=== PATIENT | female | born 1945 | race Caucasian/White ===

== ENCOUNTER 2017-03-21 13:34 | Emergency (ER) | payer MEDICARE, BC ==
--- NOTE | 2017-03-21 15:00 | ERNOTE ---
Dizziness ER Record Presenting Symptoms: dizziness Time Seen by Provider: 03/21/17 14:34 Source: patient, family Immunizations: IMMUNIZATION HX Immunizations Up to Date Yes History of Influenza Vaccine Yes Hx Pneumococcal Vaccination Yes Allergies/Adverse Reactions: Allergies Allergy/AdvReac Type Severity Reaction Status Date / Time No Known Allergies Allergy Unverified 03/21/17 13:59 Home Medications: HOME MEDICATIONS Allopurinol [Zyloprim (Allopurinol)] 100 mg PO DAILY 03/21/17 [Last Taken Unknown] Aspirin [Aspirin Chewable] 81 mg PO DAILY 03/21/17 [Last Taken Unknown] Azithromycin [Zithromax] 250 mg PO DAILY #6 tablet 03/21/17 [Last Taken Unknown] Clonidine HCl [Clonidine HCl ER] 0.1 mg PO DAILY 03/21/17 [Last Taken Unknown] Hydrochlorothiazide 50 mg PO DAILY 03/21/17 [Last Taken Unknown] Meclizine HCl 25 mg PO TID PRN #20 tablet 03/21/17 [Last Taken Unknown] Meloxicam [Mobic] 15 mg PO DAILY 03/21/17 [Last Taken Unknown] Metoprolol Tartrate [Lopressor] 100 mg PO BID 03/21/17 [Last Taken Unknown] Ondansetron [Zofran Odt] 4 mg PO Q6H PRN #20 tab 03/21/17 [Last Taken Unknown] Pravastatin Sodium 40 mg PO HS 03/21/17 [Last Taken Unknown] Soluble [place] Fiber [Fibercel] 500 gm PO DAILY 03/21/17 [Last Taken Unknown] - History of Present Illness Narrative: Patient noticed that she was having some hearing problems in the left ear and his history of wax so she went to the store and bought some Debrox with bulb syringe to irrigate out the ear canal. Subsequent to that she started noticing some roaring sensation in the ear and developed some dizziness. Patient denies any difficulty walking just dizziness with sudden head movements with nausea. Timing and Duration: gradual onset Noted on awakening:: No Severity: max: moderate Severity: currently: moderate Associated Symptoms: Present: ringing/roaring in ear, nausea Sense of movement: Present: spinning Decreased ability to stand/walk:: Present: walks w/o assistance Usually:: Present: walks w/o assistance Modifying Factors - (Improves): Reports: nothing Modifying Factors - (Worsens): Reports: movement of head Review of Systems - Review of Systems Constitutional: Present: See HPI EYE: Present: no symptoms reported ENT: Present: See HPI Respiratory: Present: no symptoms reported Cardiology: Present: no symptoms reported Gastrointestinal/Abdominal: Present: no symptoms reported Genitourinary: Present: no symptoms reported Musculoskeletal: Present: no symptoms reported Skin: Present: no symptoms reported Neurological: Present: no symptoms reported Endocrine: Present: no symptoms reported Hematologic/Lymphatic: Present: no symptoms reported Psych: Present: no symptoms reported - Patient's Past Medical History Patient History - Medical: No pertinent hx Patient History - Cardiac/Respiratory: Hypertension, Hyperlipidemia Patient History - Cancer: No Hx of Cancer Patient History - Surgical Procedures: No surgical history Patient History - Other: None LMP (females 10-50): Menopausal - Social History Living Situations: home Abuse History: No History of abuse Psych History: No pertinent hx Smoking Status: Never smoker Alcohol Use: occasionally Drug Use: none - Immunizations Immunizations Up to Date: Yes Hx Pneumococcal Vaccination: Yes History of Influenza Vaccine: Yes Physical Exam - Physical Exam General Appearance: Present: wd/wn, alert, mild distress Eye Exam: Normal inspection: bilateral, PERRL: bilateral Ears, Nose, Throat: Present: abnormal TM (L) - opaque in appearance, normal pharynx Neck: Present: normal inspection, nontender Respiratory: Present: no respiratory distress, normal breath sounds, no accessory muscle use, chest nontender, lungs clear Cardiovascular/Chest: Present: regular rate, rhythm, no murmur, normal peripheral pulses Gastrointestinal/Abdominal: Present: normal bowel sounds, nontender, nondistended, soft, no organomegaly Rectal Exam: Present: deferred Back Exam: Present: normal inspection, normal range of motion Extremity Exam: Present: normal inspection, non-tender, no edema, normal range of motion Neurological Exam: Present: alert, oriented, normal mood/affect, no motor/ sensory deficits, 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 Vital Signs: Vital Signs 03/21/17 03/21/17 13:54 14:17 Temperature 36.5 C Pulse Rate 53 L 54 L Respiratory 18 12 Rate Blood Pressure 199/83 153/56 O2 Sat by Pulse 98 98 Oximetry - Progress/Reassessment Chief Complaint: Dizziness Plan - Plan Plan: Patient was given information for the [facility] maneuver and she'll be started on meclizine and Zofran for any nausea. She agrees to follow-up with her family physician for any other ongoing care. Departure Clinical Impression: Vertigo Serous otitis media Qualifiers: Chronicity: acute Laterality: left Recurrence: not specified as recurrent Qualified Code(s): H65.02 - Acute serous otitis media, left ear - Departure Instructions: Vertigo, [id number], Serous Otitis Media Referrals: Jason Abdi DO [Primary Care Provider] - Prescriptions: Azithromycin [Zithromax] 250 mg PO DAILY #6 tablet Meclizine HCl 25 mg PO TID PRN #20 tablet PRN Reason: Vertigo Ondansetron [Zofran Odt] 4 mg PO Q6H PRN #20 tab PRN Reason: Nausea And Vomiting
[2017-03-21 15:10] VITALS: BP 152/61
== END 2017-03-21 15:09 | disposition home or self-care (01) ==
LOC: ER 13:34
DX: R42 Dizziness and giddiness (principal); H65.02 Acute serous otitis media, left ear; I10 Essential (primary) hypertension

== ENCOUNTER 2017-06-27 09:42 | Emergency (ER) | payer MEDICARE, BC ==
--- NOTE | 2017-06-27 10:25 | ERNOTE ---
Dizziness ER Record Presenting Symptoms: dizziness Time Seen by Provider: 06/27/17 09:59 Source: patient Exam Limitations: no limitations Immunizations: IMMUNIZATION HX Immunizations Up to Date Yes History of Influenza Vaccine Yes Hx Pneumococcal Vaccination Yes Allergies/Adverse Reactions: Allergies Allergy/AdvReac Type Severity Reaction Status Date / Time No Known Allergies Allergy Verified 06/27/17 09:50 Home Medications: HOME MEDICATIONS Allopurinol [Zyloprim (Allopurinol)] 100 mg PO DAILY 03/21/17 [Last Taken Unknown] Aspirin [Aspirin Chewable] 81 mg PO DAILY 03/21/17 [Last Taken Unknown] Clonidine HCl [Clonidine HCl ER] 0.1 mg PO DAILY 03/21/17 [Last Taken Unknown] Hydrochlorothiazide 50 mg PO DAILY 03/21/17 [Last Taken Unknown] Meloxicam [Mobic] 15 mg PO DAILY 03/21/17 [Last Taken Unknown] Metoprolol Tartrate [Lopressor] 100 mg PO BID 03/21/17 [Last Taken Unknown] Pravastatin Sodium 40 mg PO HS 03/21/17 [Last Taken Unknown] Soluble [place] Fiber [Fibercel] 500 gm PO DAILY 03/21/17 [Last Taken Unknown] Meclizine HCl [Travel-Ease] 25 mg PO TID PRN #30 tablet 06/27/17 [Last Taken Unknown] - History of Present Illness Narrative: Patient started to feel dizzy two days ago. She has minimal symptoms at rest, worse with head movement. She had similar symptoms in March was treated with zofran and meclizine and her symptoms resolved after a few days Date (Duration): 06/25/17 Timing and Duration: gradual onset Associated Symptoms: Present: ringing/roaring in ear, nausea. Absent: hearing loss, ear pain, vomiting, headache, weakness, numbness, sweating, light headedness, sense of confusion Sense of movement: Present: vague Decreased ability to stand/walk:: Present: off balance Usually:: Present: walks w/o assistance Modifying Factors - (Improves): Reports: other - holding still Modifying Factors - (Worsens): Reports: changing position, movement of head Prior Treament: Reports: similar symptoms before. Denies: recently seen Review of Systems - Review of Systems Constitutional: Absent: recent illness, fever EYE: Absent: double vision, vision changes ENT: Absent: nose congestion, sore throat Respiratory: Absent: shortness of breath Cardiology: Absent: chest pain Gastrointestinal/Abdominal: Present: nausea. Absent: vomiting, diarrhea, abdominal pain Genitourinary: Present: no symptoms reported Musculoskeletal: Absent: back pain, neck pain Skin: Present: no symptoms reported Neurological: Present: See HPI, dizziness/light-headedness. Absent: headache, weakness, numbness Endocrine: Present: no symptoms reported - Patient's Past Medical History Patient History - Medical: Other Patient History - Cardiac/Respiratory: Hypertension, Hyperlipidemia Patient History - Cancer: No Hx of Cancer Patient History - Surgical Procedures: No surgical history Patient History - Other: None - Social History Abuse History: No History of abuse Psych History: No pertinent hx Smoking Status: Never smoker Have you smoked in the past 12 months: No - Immunizations Immunizations Up to Date: Yes Hx Pneumococcal Vaccination: Yes History of Influenza Vaccine: Yes Physical Exam - Physical Exam General Appearance: Present: wd/wn, alert, no apparent distress, obese Head Exam: Present: normal inspection, no evidence of injury Eye Exam: Normal inspection: bilateral, PERRL: bilateral, EOMI: bilateral Ears, Nose, Throat: Present: normal ENT inspection, normal pharynx Neck: Present: normal inspection, nontender, supple, full range of motion Respiratory: Present: no respiratory distress, normal breath sounds, no accessory muscle use, lungs clear Cardiovascular/Chest: Present: regular rate, rhythm, no murmur Gastrointestinal/Abdominal: Present: nontender, nondistended, soft Neurological Exam: Present: alert, oriented, normal mood/affect, no motor/ sensory deficits, 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 Vital Signs: Vital Signs 06/27/17 09:47 Temperature 36.7 C Pulse Rate 55 L Respiratory 14 Rate Blood Pressure 163/69 O2 Sat by Pulse 95 Oximetry - Progress/Reassessment Chief Complaint: Dizziness Progress Note-Subjective: 06/27/17 10:10 call to rehab, will be seen at 11:00 explained importance to patient and of not using any medication prior to treatment, Will give prescriptions as back up Departure Clinical Impression: Vertigo - Departure Disposition: Home self-care Condition: Fair Instructions: Vertigo, [id number] Additional Instructions: go to the rehab center at 11:00 do not take any medications prior to that Referrals: Jason Abdi DO [Primary Care Provider] - Prescriptions: Meclizine HCl [Travel-Ease] 25 mg PO TID PRN #30 tablet PRN Reason: Vertigo
[2017-06-27 10:40] VITALS: BP 139/60
== END 2017-06-27 10:33 | disposition home or self-care (01) ==
LOC: ER 09:42
DX: R42 Dizziness and giddiness (principal); I10 Essential (primary) hypertension; E78.5 Hyperlipidemia, unspecified